=== PATIENT | female | born 2000 | race Caucasian/White ===

== ENCOUNTER 2020-05-06 11:56 | Emergency (ER) | payer OTHER, SELFPAY ==
[2020-05-06 12:14] VITALS: BP 139/96; PULSE 89; RESP 16; TEMP 37; O2SAT 100; BMI 21.6
--- NOTE | 2020-05-06 12:29 | ED_ITS ---
HPI - Skin/Abscess/Foreign Bdy <DANNY Saldaña - Last Filed: 05/06/20 16:40> General Chief complaint: Skin/Abscess/Foreign Body Stated complaint: Rash on back of leg Time Seen by Provider: 05/06/20 12:02 Source: patient Mode of arrival: Ambulatory Limitations: no limitations History of Present Illness HPI narrative: 20yo female history of diabetes, presents to the emergency department for a rash on the back of her knees for the past month. Patient states the rash is painful and occasionally itchy, she tries not to itch it. Patient states the rash has been progressively worse. She took ibuprofen this morning to decrease in the swelling. Patient states the swelling comes and goes. She denies any other symptoms such as fevers, chills, nausea, vomiting, diarrhea, chest pain, shortness of breath, or any other concerns. Patient states she originally thought it was ringworm and has been treating it with [id number]-[id number] fungal cream which has not helped. She denies any bites or trauma to the area. Related Data Previous Rx's Medication Instructions Recorded triamcinolone acetonide 1 applictn TOP BID 14 Days #30 gram 05/06/20 Review of Systems <DANNY Saldaña - Last Filed: 05/06/20 16:40> Review of Systems Narrative: REVIEW OF SYSTEMS: GENERAL: Denies fever or chills. HENT: Denies head trauma. EYE: Denies vision changes. CARDIOVASCULAR: Denies syncope. MUSCULOSKELETAL: Denies weakness, or deformities. INTEGUMENTARY: Complains of rash on the back of her knees, see HPI. NEURO: Denies numbness or tingling. Patient History <DANNY Saldaña - Last Filed: 05/06/20 16:40> Medical History No significant medical problems (Acute) Social History Smoking Status: Never smoker Smoking Status: Never smoker alcohol intake frequency: other Substance Use Type: does not use Exam <DANNY Saldaña - Last Filed: 05/06/20 16:40> Initial Vital Signs Initial Vital Signs: Vital Signs Temperature 98.6 F 05/06/20 12:14 Pulse Rate 89 05/06/20 12:14 Respiratory Rate 16 05/06/20 12:14 Blood Pressure 139/96 H 05/06/20 12:14 Pulse Oximetry 100 05/06/20 12:14 PHYSICAL EXAMINATION: GENERAL: Alert, and cooperative. Answers questions promptly and appropriately. HENT: Normocephalic, atraumatic. RESPIRATORY: Normal respiratory rate, trachea midline, airway patent. No stridor, nasal flaring or accessory muscle use. MUSCULOSKELETAL: Normal gait and coordination. Equal tone and mass bilaterally. EXTREMITIES: CMS intact. Moves all extremities. SKIN: Warm, dry, soft, appropriate color for ethnicity. Large silver/pink patches, one behind right knee into behind left knee. NEURO: Alert and Oriented X 3. Good coordination. PSYCH: Appropriate affect and mood. <Jeromy Howell MD - Last Filed: 05/06/20 18:49> Initial Vital Signs Initial Vital Signs: Vital Signs Temperature 98.6 F 05/06/20 12:14 Pulse Rate 89 05/06/20 12:14 Respiratory Rate 16 05/06/20 12:14 Blood Pressure 139/96 H 05/06/20 12:14 Pulse Oximetry 100 05/06/20 12:14 Course <DANNY Saldaña - Last Filed: 05/06/20 16:40> Vital Signs Vital signs: Vital Signs - 8 hr 05/06/20 12:14 Temperature 98.6 F Pulse Rate 89 Respiratory Rate 16 Blood Pressure 139/96 H Pulse Oximetry 100 <Jeromy Howell MD - Last Filed: 05/06/20 18:49> Vital Signs Vital signs: Vital Signs - 8 hr 05/06/20 12:14 Temperature 98.6 F Pulse Rate 89 Respiratory Rate 16 Blood Pressure 139/96 H Pulse Oximetry 100 MDM - Skin/Abscess/Foreign Bdy <DANNY Saldaña - Last Filed: 05/06/20 16:40> Medical Records Attestation: I reviewed the patient's medical records. Lab Data Attestation: I reviewed the patient's lab results. [facility] Narrative Medical decision making narrative: 20-year-old female presents emergency department for rash in the back for knees. Rash characteristics appear to be eczema versus psoriasis. No signs of infection such as weeping, significant erythema, or passed. Patient is hemodynamically stable, afebrile. Patient was given steroid cream to apply the areas. She was encouraged to follow up with her PCP in the next week for further evaluation. Patient agrees plan of care verbalized understanding. Discharge Plan Departure Patient Disposition: Home Clinical Impression: Eczema Qualifiers: Eczema type: unspecified Qualified Code(s): L30.9 - Dermatitis, unspecified Discharge Date/Time: 05/06/20 12:38 Instructions: DI for Atopic Dermatitis-Adult Activity Restrictions/Additional Instructions: Thank you for entrusting me with your care today. As discussed, it appears your rash may be eczema. I prescribed you a steroid cream to apply to these areas. Please follow-up with your primary care provider in the next 1-2 weeks for further evaluation especially if her rash does not improve. Apply a thick lotion to the areas daily. Watch for signs of infection such as redness, pus, increased heat to the area, fevers--of the symptoms occur please be seen immediately. Return emergency department for any new or worsening symptoms. Prescriptions: New triamcinolone acetonide 0.1 % ointment 1 applictn TOP BID 14 Days Qty: 30 RF: 0 Referrals: Donald Chadwick PA-C [Primary Care Provider] -
== END 2020-05-06 12:38 | disposition home or self-care (01) ==
PROVIDERS: Emergency Provider Nurse Practitioner; PCP Physician Assistant
DX: L30.9 Dermatitis, unspecified (principal)
CPT/HCPCS: 99281

== ENCOUNTER → 2021-03-08 14:31 | Outpatient (CLI) | payer OTHER, SELFPAY ==
[2021-03-08 16:52] LABS: Creatinine Urine Random 85.6 mg/dL
[2021-03-08 16:56] LABS: Microalbumi Creatinin Ratio Ur 19.8 ug/mg CR (<30); Microalbumin Urine Random 1.7 mg/dL (0-1.6)
[2021-03-08 17:08] LABS: Urine N gonorrhoeae NOT DETECTED
[2021-03-08 17:41] LABS: Urine Chlamydia NOT DETECTED
== END ==
PROVIDERS: PCP Family Medicine; Referring Provider Registered Nurse; Visit Provider Registered Nurse
DX: N89.8 Other specified noninflammatory disorders of vagina (principal); E10.9 Type 1 diabetes mellitus without complications; Z76.89 Persons encountering health services in other specified circumstances
CPT/HCPCS: 82043; 82570; 87210; 87491; 87591

== ENCOUNTER → 2021-04-26 08:29 | Outpatient (CLI) | payer OTHER, SELFPAY ==
[2021-04-26 10:11] LABS: Add Manual Diff / Slide Review NO; Basophils Absolute Auto 0 /uL (0-100); Basophils Percent Auto 0.6 % (0-2); Eosinophils Absolute Auto 100 /uL (0-450); Eosinophils Percent Auto 1.4 % (2-4); Hematocrit 43.1 % (36-46); Hemoglobin 14.3 g/dL (12.0-16.0); Lymphocytes Absolute Auto 1300 /uL (1100-4500); Lymphocytes Percent Auto 22.9 % (25-40); Mean Corpuscular HGB Conc 33.2 % (30-36); Mean Corpuscular Hemoglobin 32.5 PG (26-34); Mean Corpuscular Volume 97.9 fL (80-100); Monocytes Absolute Auto 500 /uL (0-900); Monocytes Percent Auto 9.5 % (3-14); Neutrophils Absolute Auto 3700 /uL (1500-7000); Neutrophils Percent Auto 65.6 % (50-75); Platelet Count 263 X10^3/uL (150-400); Red Cell Distribution Width 13.3 % (11.6-14.8); White Blood Cell Count 5.7 X10^3/uL (4.5-11.0)
[2021-04-26 10:22] LABS: Alanine Aminotransferase 11 IU/L (<35); Albumin 4.3 g/dL (3.5-5.0); Albumin Globulin Ratio 1.3 (1.0-2.8); Alkaline Phosphatase 67 U/L (38-126); Aspartate Aminotransferase 24 IU/L (14-36); BUN Creatinine Ratio 14.3 (6-22); Bilirubin Total 0.6 mg/dL (0.2-1.3); Blood Urea Nitrogen 8 mg/dL (7-17); Calcium 9.6 mg/dL (8.4-10.2); Carbon Dioxide 27 mmol/L (22-32); Chloride 102 mmol/L (98-107); Cholesterol 184 mg/dL (140-199); Estimated Glomerular Filt Rate > 60.0 mL/min (>60); Globulin 3.2 g/dL (1.7-4.1); Glucose 129 mg/dL (70-100); HDL Cholesterol 82 mg/dL (40-60); HEMOLYSIS < 15 (0-50); LDL Cholesterol Calculated 87 mg/dL (<100); Potassium 4.5 mmol/L (3.4-5.1); Sodium 137 mmol/L (137-145); Total Protein 7.5 g/dL (6.3-8.2); Triglycerides 74 mg/dL (35-150)
[2021-04-26 10:30] LABS: Hemoglobin A1C% w Est Avg Glu 6.2 % (4.0-6.0)
== END ==
PROVIDERS: PCP Family Medicine; Referring Provider Family Medicine; Visit Provider Family Medicine
DX: E10.9 Type 1 diabetes mellitus without complications (principal); Z76.89 Persons encountering health services in other specified circumstances
CPT/HCPCS: 36415; 80053; 80061; 83036; 85025

== ENCOUNTER → 2023-03-05 07:39 | Outpatient (CLI) | payer OTHER, SELFPAY ==
[2023-03-05 08:24] LABS: Add Manual Diff / Slide Review NO; Basophils Absolute Auto 0 /uL (0-100); Basophils Percent Auto 0.4 % (0-2); Eosinophils Absolute Auto 0 /uL (0-450); Hematocrit 41.1 % (36-46); Hemoglobin 13.8 g/dL (12.0-16.0); Lymphocytes Absolute Auto 1500 /uL (1100-4500); Lymphocytes Percent Auto 27.9 % (25-40); Mean Corpuscular HGB Conc 33.7 % (30-36); Mean Corpuscular Hemoglobin 32.8 PG (26-34); Mean Corpuscular Volume 97.4 fL (80-100); Monocytes Absolute Auto 500 /uL (0-900); Monocytes Percent Auto 9.5 % (3-14); Neutrophils Absolute Auto 3200 /uL (1500-7000); Neutrophils Percent Auto 61.2 % (50-75); Platelet Count 206 X10^3/uL (150-400); Red Blood Cell Count 4.22 X10^6/uL (4.0-5.2); Red Cell Distribution Width 13.2 % (11.6-14.8); White Blood Cell Count 5.2 X10^3/uL (4.5-11.0)
[2023-03-05 08:48] LABS: Alanine Aminotransferase 22 IU/L (<35); Albumin 4.2 g/dL (3.5-5.0); Albumin Globulin Ratio 1.7 (1.0-2.8); Alkaline Phosphatase 46 U/L (38-126); Aspartate Aminotransferase 26 IU/L (14-36); Bilirubin Total 0.7 mg/dL (0.2-1.3); Blood Urea Nitrogen 9 mg/dL (7-17); Calcium 9.2 mg/dL (8.4-10.2); Carbon Dioxide 29 mmol/L (22-32); Chloride 96 mmol/L (98-107); Cholesterol 196 mg/dL (140-199); Estimated Glomerular Filt Rate > 60 mL/min (>60); Globulin 2.5 g/dL (1.7-4.1); Glucose 274 mg/dL (70-100); HDL Cholesterol 78 mg/dL (40-60); HEMOLYSIS < 15 (0-50); LDL Cholesterol Calculated 102 mg/dL (<100); Potassium 5.2 mmol/L (3.4-5.1); Sodium 134 mmol/L (137-145); Total Protein 6.7 g/dL (6.3-8.2); Triglycerides 79 mg/dL (35-150)
[2023-03-05 10:41] LABS: Creatinine Urine Random 179.2 mg/dL
[2023-03-05 10:43] LABS: Microalbumi Creatinin Ratio Ur 6.1 ug/mg CR (<30); Microalbumin Urine Random 1.1 mg/dL (0-1.6)
[2023-03-06 05:54] LABS: x Labcorp Estim. Avg Glu (eAG) 223 mg/dL (.); x Labcorp Hemoglobin A1c 9.4 % (4.8-5.6)
== END ==
PROVIDERS: PCP Family Medicine; Referring Provider Family Medicine; Visit Provider Family Medicine
DX: E10.9 Type 1 diabetes mellitus without complications (principal)
CPT/HCPCS: 36415; 80053; 80061; 82043; 82570; 83036; 85025